=== PATIENT | male | born 1960 | race African-American/Black ===

== ENCOUNTER 2016-10-03 12:43 | Emergency (ER) | payer OTHER ==
[2016-10-03 13:00] VITALS: BP 150/98; PULSE 71; TEMP 98.2; BMI 22.6
[2016-10-03] MEDS ORDERED: IBUPROFEN 600 MG TABLET (FP) PO ONE ×2 (13:47→13:49)
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
[2016-10-03] MEDS ORDERED: CYCLOBENZAPRINE HCL 10 MG TABLET (FP) PO ONE (13:57)
[2016-10-03] MEDS ORDERED: CYCLOBENZAPRINE HCL 10 MG TABLET (FP) ONE (14:05)
== END 2016-10-03 14:31 | disposition home or self-care (01) ==
LOC: JERFT 12:43
DX: S13.4XXA Sprain of ligaments of cervical spine, initial encounter (principal); S40.011A Contusion of right shoulder, initial encounter; V43.62XA Car passenger injured in collision with other type car in traffic accident, initial encounter; Y92.414 Local residential or business street as the place of occurrence of the external cause; Y93.89 Activity, other specified; Y99.8 Other external cause status
CPT/HCPCS: 73030-TC-RT; 99281-25

== ENCOUNTER 2022-04-19 15:53 | Emergency (ER) | payer OTHER ==
[2022-04-19 16:18] VITALS: BMI 24.4
[2022-04-19 18:25] LABS: BASO % 0.5 % (0-2.0); EOS % 3.9 % (0-4.5); HEMATOCRIT 44.6 % (35.4-49); LYMPH % 43.5 % (8-40); MCH 31.2 pg (25.7-33.7); MCHC 33.6 g/dl (32.0-35.9); MEAN CELL VOLUME 92.9 fl (80-96); MEAN PLT VOLUME 8.1 fl (7.5-11.1); NEUT % 42.1 % (42.8-82.8); PLATELET COUNT 229 10^3/uL (134-434); RBC 4.81 M/mm3 (4.00-5.60); RDW 13.9 % (11.9-15.9); WHITE BLOOD COUNT 5.5 K/mm3 (4.0-10.0)
[2022-04-19 18:40] LABS: INR 1.05 (0.83-1.09); PROTHROMBIN TIME (PATIENT) 12.1 SEC (9.7-13.0)
[2022-04-19 18:48] LABS: ALBUMIN 4.4 g/dl (3.4-5.0); CALCIUM 9.7 mg/dL (8.5-10.1)
[2022-04-19 18:51] LABS: CREATININE 1.3 mg/dL (0.55-1.3)
[2022-04-19 18:53] LABS: BILIRUBIN,TOTAL 0.4 mg/dL (0.2-1); TOT PROT 8.7 g/dl (6.4-8.2)
[2022-04-19 20:27] VITALS: BP 203/92; PULSE 72; RESP 18; TEMP 98.6
[2022-04-19] MEDS ORDERED: amLODIPine BESYLATE 5 MG TABLET (FP) PO ONE (20:59)
[2022-04-19] MEDS ORDERED: amLODIPine BESYLATE 5 MG TABLET (FP) ONE (21:02)
== END 2022-04-19 21:31 | disposition home or self-care (01) ==
LOC: JER 15:53
DX: I10 Essential (primary) hypertension (principal)
CPT/HCPCS: 0241U-QW; 36415; 80053; 84484; 85025; 85610; 85730; 93005; 93010; 99284-25